=== PATIENT | male | born 1955 ===

== ENCOUNTER 2022-09-26 22:50 | Emergency (ER) | payer SELFPAY ==
[2022-09-26 22:55] LABS: Glucose,Whole Blood 129 mg/dL (70-110)
[2022-09-26 23:08] VITALS: BP 141/83; PULSE 81; RESP 18; TEMP 97.9
--- NOTE | 2022-09-27 00:06 | ED ---
General Adult HPI - General Chief complaint: Altered Mental Status Stated complaint: Altered Mental Status Time Seen by Provider: 09/26/22 23:14 Source: patient, EMS, RN notes reviewed, old records reviewed Mode of arrival: EMS Limitations: altered mental status - History of Present Illness Initial comments: Patient is a 67-year-old male with past medical history remarkable for chronic toe pain and no other medical problems presents emergency department for evaluation. Patient is a primary Jamaican speaker, speaking Indonesian as a second language. 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 At the border, he was being searched by customs and he states they were yelling at him in Indonesian and using sling terms he did not understand. They were concerned that he had altered mental status and wanted him to be evaluated. They called EMS and was brought here for further evaluation at this time. We used an heavy duty mechanic farm equipment to speak with the patient and Jamaican. He is not confused. He has no complaints. States he [place] flustered [place] the border as they were yelling at him. He states he does not understand all Indonesian terms but does understand enough proper Indonesian to get by. He denies any chest pain, shortness breath, abdominal pain, nausea, vomiting, blurry vision, headache. His chronic right toe pain. Denies any nausea or vomiting. Has no other acute complaints at this time.Presents for medical clearance.Patient understands my Indonesian but we will use Jamaican heavy duty mechanic farm equipment to ensure there is no confusion. Patient was in agreement with this plan. He states he does not drink or use drugs as he is a practicing [employer]. Review of Systems ROS Statement: Those systems with pertinent positive or pertinent negative responses have been documented in the HPI. Review of Systems: CONST: Denies fever EYES: Denies blurry vision ENT: Denies nasal congestion C/V: Denies Chest pain RESP: Denies shortness of breath GI: Denies abdominal pain : Denies dysuria SKIN: Denies rash. MSK: Endorses chronic toe pain. NEURO: Denies headache ROS Other: All systems not noted in ROS Statement are negative. General Exam - General Exam Comments Initial Comments: General: Appears in no acute distress. Resting comfortably. HEAD: Normal with no signs of head trauma. EYES: PERRLA, EOMI, conjunctiva normal, no discharge. Pupils are 3 mm and equal bilaterally. ENT: Hearing grossly intact, normal oropharynx. RESPIRATORY: Clear breath sounds bilaterally. No wheezes, rales, or rhonchi. C/V: Regular rate and rhythm. S1 and S2 auscultated, no edema, peripheral pulses 2+ and intact throughout ABD: Abd is soft, nontender, nondistended EXT: Normal range of motion, no obvious deformity SKIN: No rashes or lesions observed on exposed skin. NEURO: Alert and oriented x 4. Cranial nerves II-XII intact. No focal sensory or strength deficits. Cerebellar function within normal limits. Able to ambulate without difficulty. Limitations: altered mental status Course Vital Signs 09/26/22 22:54 Temperature 97.9 F Pulse Rate 81 Respiratory 18 Rate Blood Pressure 141/83 O2 Sat by Pulse 97 Oximetry Medical Decision Making - Medical Decision Making Based on the patient's presentation and physical exam, he presents for medical clearance. [facility] concerned that he had altered mental status, however it seems that it was a misunderstanding. Patient is a primary Jamaican speaker, and they were yelling at him in Indonesian terms and slang that he was on certain what they meant. States he panicked and became flustered with the questions. This is why they sent him here for evaluation. Please an heavy duty mechanic farm equipment for Jamaican to ensure there is no confusion. Patient has no deficits of her altered mental status at this time. He has no complaints at this time. I do not believe that laboratory studies or imaging are required at this time. Vital signs within acceptable limits. Patient was in agreement with this plan. He will be discharged home at this time. I instructed the patient to follow up with their PCP in the next 1-3 days. I explained that the patient should return to the emergency department if they experience any worsening symptoms. Strict return precautions were discussed with the patient. The patient expressed understanding of these instructions. I answered all questions that the patient had. The patient was discharged home in good condition with their prescriptions and follow up information. Was pt. sent in by a medical professional or institution (BRENDAN Padron, WOOL WASHING MACHINE OPERATOR, urgent care, hospital, or assisted...) When possible be specific @ -No Did you speak to anyone other than the patient for history (EMS, parent, family, police, friend...)? What history was obtained from this source @ -Yes, EMS. EMS agrees that he does not appear confused but they believe is likely a language barrier. Did you review nursing and triage notes (agree or disagree)? Why? @ -I reviewed and agree with nursing and triage notes Were old charts reviewed (outside hosp., previous admission, EMS record, old EKG, old radiological studies, urgent care reports/EKG's, assisted records)? Report findings @ -No old charts were reviewed Differential Diagnosis (chest pain, altered mental status, abdominal pain women, abdominal pain men, vaginal bleeding, weakness, fever, dyspnea, syncope, headache, dizziness, GI bleed, back pain, seizure, CVA, palpatations, mental health)? @ -Language barrier, altered mental status. This list is not all inclusive EKG interpreted by me (3pts min.). @ -None done X-rays interpreted by me (1pt min.). @ -None done CT interpreted by me (1pt min.). @ -None done U/S interpreted by me (1pt. min.). @ -None done What testing was considered but not performed or refused? (CT, X-rays, U/S, labs)? Why? @ -None What meds were considered but not given or refused? Why? @ -None Did you discuss the management of the patient with other professionals (professionals i.e. , PA, WOOL WASHING MACHINE OPERATOR, lab, RT, psych nurse, social and political studies professor, salad chef, teacher, booking officer, rehabilitation case coordinator)? Give summary @ -No Was smoking cessation discussed for >3mins.? @ -No Was critical care preformed (if so, how long)? @ -No Were there social determinants of health that impacted care today? How? (Homelessness, low income, unemployed, alcoholism, drug addiction, transportation, low edu. Level, literacy, decrease access to med. care, custodial, rehab)? @ -Language barrier. Impacted reason for patient to be transported to the emergency department. Was there de-escalation of care discussed even if they declined (Discuss DNR or withdrawal of care, Hospice)? DNR status @ -No What co-morbidities impacted this encounter? (DM, HTN, Smoking, COPD, CAD, Cancer, CVA, ARF, Chemo, Hep., AIDS, mental health diagnosis, sleep apnea, morbid obesity)? @ -None Was patient admitted / discharged? Hospital course, mention meds given and route, prescriptions, significant lab abnormalities, going to OR and other pertinent info. @ -Discharged home. See above for ED course. Undiagnosed new problem with uncertain prognosis? @ -No Drug Therapy requiring intensive monitoring for toxicity (Heparin, Nitro, Insulin, Cardizem)? @ -No Were any procedures done? @ -No Diagnosis/symptom? @ -Language barrier Acute, or Chronic, or Acute on Chronic? @ -Acute Uncomplicated (without systemic symptoms) or Complicated (systemic symptoms)? @ -Uncomplicated Side effects of treatment? @ -No Exacerbation, Progression, or Severe Exacerbation? @ -No Poses a threat to life or bodily function? How? (Chest pain, USA, CA, pneumonia, PE, COPD, DKA, ARF, appy, cholecystitis, CVA, Diverticulitis, Homicidal, Suicidal, threat to staff... and all critical care pts) @ -No - Lab Data Lab Results 09/26/22 Range/Units 22:53 POC Glucose (mg/dL) 129 H (70-110) mg/dL POC Glu Packing Machine Tender ID Bo Mccoy Disposition Clinical Impression: Language barrier Disposition: HOME SELF-CARE Condition: Good Is patient prescribed a controlled substance at d/c from ED?: No Referrals: None,Stated [Primary Care Provider] - 1-2 days Time of Disposition: 23:26
== END 2022-09-26 23:38 | disposition home or self-care (01) ==
LOC: EC 22:50
DX: F80.1 Expressive language disorder (principal)
CPT/HCPCS: 36415; 99284